=== PATIENT | female | born 1960 | race African-American/Black ===

== ENCOUNTER 2018-03-05 09:13 | Emergency (ER) | payer OTHER ==
[~2018-03-05] VITALS: Ht 165.1 cm; Wt 56.7 kg
[2018-03-05 09:56] LABS: ABSOLUTE NEUTROPHILS 6.7 thou/uL (1.4-8.2); BASOPHILS 0.5 % (0.0-2.0); EOSINOPHILS 0.2 % (0.0-3.0); HEMATOCRIT 40.6 % (37.0-47.0); LYMPHOCYTES 9.4 % (24.0-44.0); MCH 31.8 pg (26.0-34.0); MCHC 34.4 g/dL (28.0-37.0); MCV 92.6 fL (80.0-100.0); MONOCYTES 4.2 % (1.0-8.0); PLATELET COUNT 224 thou/uL (150-400); POLYS 85.7 % (36.0-66.0); RBC 4.39 mil/uL (4.20-5.00); WBC 7.9 thou/uL (4.0-11.0)
[2018-03-05 10:05] LABS: CALCIUM 9.7 mg/dL (8.5-10.1); CREATININE 0.9 mg/dL (0.6-1.0); POTASSIUM 3.6 mmol/L (3.5-5.1)
[2018-03-05] MEDS ORDERED: SYNTHROID100 MC1 PO (11:03)
[2018-03-05] MEDS ORDERED: CLINDAMYCIN HC150 MG PO (11:08)
[2018-03-05] MEDS ORDERED: NORCO 5-325 TA1 EACH PO (11:08)
[2018-03-05] MEDS ORDERED: IBUPROFEN 400400 M2 PO (11:08)
[2018-03-05 11:18] VITALS: BP 160/92
== END 2018-03-05 11:25 | disposition home or self-care (01) ==
LOC: ER 09:13
PROVIDERS: Student in an Organized Health Care Education/Training Program
DX: K04.7 Periapical abscess without sinus (principal)